=== PATIENT | female | born 1955 | race Caucasian/White ===

== ENCOUNTER 2020-11-11 02:01 | Inpatient (IN) | payer MEDICARE, MEDICAID ==
[~2020-11-11] VITALS: Ht 157.5 cm; Wt 58.9 kg
[~2020-11-11 02:01] MED LIST: ESCI10TA10 PO; LAMO25TA13 PO; LEVO112T4 PO; LEVO750T6 PO; PRED20TA PO; TIOT18CA INH
--- NOTE | 2020-11-11 02:15 | NUR ---
Pt presents to ED with shortness of breath following glf at home. Pt was found at 70% ra. Pt on 4L at this time, 90% RA.
[2020-11-11 02:45] LABS: BASOPHILS % (AUTO) 1 % (0-1); EOSINOPHILS % (AUTO) 0 % (1-7); LYMPHOCYTES % (AUTO) 26 % (22-44); MEAN CORPUSCULAR HEMOGLOBIN 29.9 pg (27.0-34.8); MEAN CORPUSCULAR HGB CONC 33.2 g/dL (32.4-35.8); MEAN PLATELET VOLUME 10.3 fL (7.4-10.4); MONOCYTES % (AUTO) 9 % (2-9); NEUTROPHILS % (AUTO) 65 % (42-75); PLATELET COUNT 225 x10^3/uL (130-400); RED BLOOD COUNT 5.09 x10^6/uL (3.82-5.3); RED CELL DISTRIBUTION WIDTH 14.8 % (9.6-15.2)
[2020-11-11 02:54] LABS: ALBUMIN 3.3 g/dL (3.4-5.0); ANION GAP 8 mmol/L (5-15); CALCIUM 8.2 mg/dL (8.5-10.1); CHLORIDE 100 mmol/L (98-107); CREATININE 0.96 mg/dL (0.55-1.02)
[2020-11-11 04:48] LABS: TROPONIN I < 0.015 ng/mL (0.000-0.045)
--- NOTE | 2020-11-11 04:55 | NUR ---
ASSUMED CARE OF PATIENT AT THIS TIME. UPON ENTERING ROOM PATIENT ON OXY MAX AT 3L SPO2 87%. INCREASED TO 6L SPO2 NOW 91%. PATIENT REQUESTING ICE CHIPS BUT OTHERWISE STATES SHE FEELS FINE. DENIES NEEDS AT THIS TIME. CALL MELENDEZ IN REACH. BED IN LOW POSITION. WILL CONTINUE TO MONITOR.
--- NOTE | 2020-11-11 04:57 | NUR ---
SEVEN REQUESTED AT THIS TIME.
[2020-11-11] MEDS ORDERED: SODIUM CHLORIDE 0.9% 1,000 ML IV ONE (05:00)
[2020-11-11] MEDS ORDERED: SODIUM CHLORIDE FLUSH 10ML SYR IVF ONE (05:00)
[2020-11-11] MEDS ORDERED: LEVETIRACETAM 1,000 MG in SODIUM CHLORIDE 0.9% 100 ML IV ONE (05:00)
[2020-11-11] MEDS ORDERED: CEFTRIAXONE 1,000 MG in DEXTROSE 5% 50 ML IVPB ONE (05:00)
[2020-11-11] MEDS ORDERED: DOXYCYCLINE 100 MG in DEXTROSE 5% 250 ML IV ONE (05:30)
[2020-11-11] MEDS ORDERED: ONDANSETRON 2MG/ML, 2ML IVPush PRN (06:00)
[2020-11-11] MEDS ORDERED: ACETAMINOPHEN 325 MG TABLET PO PRN (06:00)
[2020-11-11] MEDS ORDERED: INSTRUCTION SEE COMMENTS XX ONE (06:00)
[2020-11-11] MEDS ORDERED: LABETALOL 5MG/ML, 20ML IV PRN (06:00)
[2020-11-11 06:06] LABS: INTERNATIONAL NORMALIZED RATIO 1.04 (0.93-1.1); PROTHROMBIN TIME 11.1 Seconds (9.6-11.5)
[2020-11-11] MEDS ORDERED: OMNIPAQUE 350 MG/ML, 100ML BOTTLE ONE (06:13)
--- NOTE | 2020-11-11 06:54 | NUR ---
REPORT GIVEN TO JUNIE IVERSON.
--- NOTE | 2020-11-11 09:05 | NUR ---
LATE ENTRY 0900, PT TO CT WITH TECH TRANSPORT.
--- NOTE | 2020-11-11 09:05 | NUR ---
0700 ENTRY, SBAR RPT REC'D AND ASSUMED PT CARE. PT AWAKE, VSS, NO NEEDS AT THIS TIME.
--- NOTE | 2020-11-11 09:06 | NUR ---
LATE ENTRY 0800, PT ASSESSMENT NOTED. NO NEURO DEFICIT NOTED OTHER THAN GENERALIZED WEAKNESS. PT OOB, STAND AND TRANSFER TO [facility], RN STANDBY ASSIST. VOIDED W/O DIFFICULTY AND RTD TO BED W/O INCIDENT. SWALLOW EVAL COMPLETED AND PT PASSED. MEAL TRAY ORDERED. WARM BLANKET PROVIDED AND ICE CHIPS AT BEDSIDE.
--- NOTE | 2020-11-11 09:24 | NUR ---
PT RTD FROM CT[facility] BED IN ROOM, PT AMBULATED FROM HALLWAY TO ROOM WITH RN STANDBY ASSIST. PT WITH STEADY GAIT, HOWEVER SLOW AND SHUFFLES. MEAL TRAY SET UP AND PT EATING W/O DIFFICULTY. CALL LIGHT W/I REACH
--- NOTE | 2020-11-11 09:36 | NUR ---
PT ATE 75% OF BREAFST MEAL. TRIALED PT ON NC 6L WHILE EATING, PULSE OX MAINTAINED GREATER THAN 92%. WILL CONTINUE 6L NC
[2020-11-11 10:06] LABS: ALANINE AMINOTRANSFERASE 28 U/L (12-78); ALBUMIN 3.2 g/dL (3.4-5.0)
[2020-11-11 10:07] LABS: ALKALINE PHOSPHATASE 113 U/L (45-117); BILIRUBIN,TOTAL 0.4 mg/dL (0.2-1.0); TOTAL PROTEIN 7.1 g/dL (6.4-8.2)
[2020-11-11 10:16] LABS: BILIRUBIN, DIRECT < 0.1 mg/dL (0.1-0.2); BILIRUBIN,INDIRECT 0.3 mg/dL (0.0-2.0)
--- NOTE | 2020-11-11 12:14 | NUR ---
PT MOSTLY RESTING WITH EYES CLOSED, ARROUSES EASILY TO VERBAL STIM. NO NEURO CHANGES NOTED. IVF INFUSING W/O DIFFICULTY, PT DENIES ANY NEEDS. VSS. MEAL TRAY ORDERED. CALL LIGHT W/I REACH
[2020-11-11] MEDS ORDERED: methylPREDNISolone SOD SUCC 40 MG/ML ONE (12:35)
--- NOTE | 2020-11-11 12:57 | NUR ---
VERBAL PERMISSION OBTAINED FROM PT. UPDATED PTS DAUGHTER, GLORIA. POC DISCUSSED AND QUESTIONS ANSWERED.
[2020-11-11] MEDS: CEFTRIAXONE 2 GM in DEXTROSE 5% 50 ML IVPB SCH (13:01)
[2020-11-11] MEDS: methylPREDNISolone SOD SUCC 40 MG/ML IV SCH ×2 (13:01→22:11)
--- NOTE | 2020-11-11 14:09 | NUR ---
ASSUMED CARE FROM JUNIE IVERSON. PATIENT SITTING IN ROOM SLEEPING BETWEEN CARE. NO NEEDS AT THIS TIME, CALL LIGHT IN REACH.
[2020-11-11] MEDS: TIOTROPIUM BROMIDE 18 MCG/INH INH SCH (14:36)
[2020-11-11] MEDS ORDERED: LEVETIRACETAM 500 MG in SODIUM CHLORIDE 0.9% 100 ML IV SCH (17:00)
--- NOTE | 2020-11-11 17:37 | NUR ---
REPORT TO JUNIE JACOBSEN. PATIENT AWAITING TRANSPORT.
[2020-11-11 18:25] VITALS: BP 96/42
[2020-11-12 03:31] VITALS: BP 108/63
[2020-11-12] MEDS: methylPREDNISolone SOD SUCC 40 MG/ML IV SCH (05:28)
[2020-11-12] MEDS: LEVOTHYROXINE 112 MCG TABLET PO SCH (05:29)
[2020-11-12 06:40] LABS: BASOPHILS % (AUTO) 0 % (0-1); EOSINOPHILS % (AUTO) 0 % (1-7); LYMPHOCYTES % (AUTO) 21 % (22-44); MEAN CORPUSCULAR HEMOGLOBIN 30.2 pg (27.0-34.8); MEAN CORPUSCULAR HGB CONC 33.2 g/dL (32.4-35.8); MEAN PLATELET VOLUME 11.1 fL (7.4-10.4); MONOCYTES % (AUTO) 4 % (2-9); NEUTROPHILS % (AUTO) 75 % (42-75); PLATELET COUNT 218 x10^3/uL (130-400); RED BLOOD COUNT 4.95 x10^6/uL (3.82-5.3); RED CELL DISTRIBUTION WIDTH 15.2 % (9.6-15.2)
[2020-11-12 06:53] LABS: CALCIUM 8.7 mg/dL (8.5-10.1); CHLORIDE 106 mmol/L (98-107)
[2020-11-12 06:59] LABS: ALANINE AMINOTRANSFERASE 24 U/L (12-78); ALBUMIN 2.7 g/dL (3.4-5.0); ALKALINE PHOSPHATASE 102 U/L (45-117); ANION GAP 8 mmol/L (5-15); BILIRUBIN,TOTAL 0.1 mg/dL (0.2-1.0); CHOL/HDL RATIO 2.1; CHOLESTEROL, TOTAL 130 mg/dL (140-239); CREATININE 0.62 mg/dL (0.55-1.02); HDL CHOL % 47 % (28-40); HDL CHOLESTEROL (DIRECT) 61 mg/dL (40-60); LDL CHOLESTEROL,CALCULATED 59 mg/dL (54-169); TOTAL PROTEIN 6.5 g/dL (6.4-8.2); TRIGLYCERIDES 48 mg/dL (50-200); VLDL CHOLESTEROL 10 mg/dL (0-25)
[2020-11-12 08:34] VITALS: BP 133/56
[2020-11-12] MEDS: ESCITALOPRAM 10MG TABLET PO SCH (08:39)
[2020-11-12] MEDS: LAMOTRIGINE 25 MG TABLET PO SCH (08:39)
[2020-11-12] MEDS: ENOXAPARIN 40 MG/0.4 ML SQ SCH (10:40)
[2020-11-12] MEDS: TIOTROPIUM BROMIDE 18 MCG/INH INH SCH (12:05)
[2020-11-12] MEDS: CEFTRIAXONE 2 GM in DEXTROSE 5% 50 ML IVPB SCH (12:05)
[2020-11-12 13:49] VITALS: BP 98/55
[2020-11-12 16:14] VITALS: BP 99/61
[2020-11-12 18:48] VITALS: BP 107/59
[2020-11-12] MEDS: AZITHROMYCIN 500 MG TABLET PO SCH (19:39)
[2020-11-12] MEDS: GUAIFENESIN/DM 200-20MG, 10ML UDC PO PRN (20:06)
[2020-11-13 00:25] VITALS: BP 108/65
[2020-11-13] MEDS: GUAIFENESIN/DM 200-20MG, 10ML UDC PO PRN ×2 (04:53→16:15)
[2020-11-13] MEDS: LEVOTHYROXINE 112 MCG TABLET PO SCH (04:54)
[2020-11-13 09:11] VITALS: BP 112/58
[2020-11-13] MEDS: ENOXAPARIN 40 MG/0.4 ML SQ SCH (09:12)
[2020-11-13] MEDS: AZITHROMYCIN 500 MG TABLET PO SCH (09:13)
[2020-11-13] MEDS: ESCITALOPRAM 10MG TABLET PO SCH (09:13)
[2020-11-13] MEDS: LAMOTRIGINE 25 MG TABLET PO SCH (09:13)
[2020-11-13] MEDS: DEXAMETHASONE 4 MG TABLET PO SCH (09:13)
[2020-11-13] MEDS: TIOTROPIUM BROMIDE 18 MCG/INH INH SCH (09:14)
[2020-11-13] MEDS: CEFTRIAXONE 2 GM in DEXTROSE 5% 50 ML IVPB SCH (11:52)
[2020-11-13 14:45] VITALS: BP 107/64
[2020-11-13] MEDS: OXYcodone IR 5MG TABLET PO PRN ×2 (16:15→21:22)
[2020-11-13] MEDS ORDERED: REMDESIVIR 200 MG in SODIUM CHLORIDE 0.9% 100 ML IVPB ONE (18:00)
[2020-11-13 18:32] VITALS: BP 102/59
[2020-11-14 03:53] VITALS: BP 109/69
[2020-11-14] MEDS: LEVOTHYROXINE 112 MCG TABLET PO SCH ×2 (04:20→05:18)
[2020-11-14] MEDS: OXYcodone IR 5MG TABLET PO PRN ×4 (04:21→18:31)
[2020-11-14 05:00] LABS: ALANINE AMINOTRANSFERASE 24 U/L (12-78); ALBUMIN 2.7 g/dL (3.4-5.0); ANION GAP 5 mmol/L (5-15); CALCIUM 8.8 mg/dL (8.5-10.1); CHLORIDE 104 mmol/L (98-107); CREATININE 0.66 mg/dL (0.55-1.02)
[2020-11-14 05:03] LABS: ALKALINE PHOSPHATASE 96 U/L (45-117); BILIRUBIN,TOTAL 0.1 mg/dL (0.2-1.0); TOTAL PROTEIN 6.5 g/dL (6.4-8.2)
[2020-11-14 06:50] VITALS: BP 99/62
[2020-11-14] MEDS: ESCITALOPRAM 10MG TABLET PO SCH (08:50)
[2020-11-14] MEDS: DEXAMETHASONE 4 MG TABLET PO SCH (08:50)
[2020-11-14] MEDS: LAMOTRIGINE 25 MG TABLET PO SCH (08:50)
[2020-11-14] MEDS: AZITHROMYCIN 500 MG TABLET PO SCH (08:50)
[2020-11-14] MEDS: ENOXAPARIN 40 MG/0.4 ML SQ SCH (08:54)
[2020-11-14] MEDS: GUAIFENESIN/DM 200-20MG, 10ML UDC PO PRN ×2 (09:15→18:34)
[2020-11-14] MEDS: TIOTROPIUM BROMIDE 18 MCG/INH INH SCH (09:59)
[2020-11-14 11:45] VITALS: BP 106/66
[2020-11-14] MEDS: CEFTRIAXONE 2 GM in DEXTROSE 5% 50 ML IVPB SCH (12:52)
[2020-11-14 17:16] VITALS: BP 112/61
[2020-11-14] MEDS: REMDESIVIR 100 MG in SODIUM CHLORIDE 0.9% 100 ML IVPB SCH (18:21)
[2020-11-14] MEDS: POLYETHYLENE GLYCOL 17 GM PACKET PO PRN (18:30)
[2020-11-14 21:37] VITALS: BP 102/52
[2020-11-15 00:05] VITALS: BP 97/54
[2020-11-15] MEDS: OXYcodone IR 5MG TABLET PO PRN ×3 (03:25→19:51)
[2020-11-15] MEDS: LEVOTHYROXINE 112 MCG TABLET PO SCH (05:23)
[2020-11-15 06:36] LABS: ALBUMIN 2.3 g/dL (3.4-5.0); ANION GAP 4 mmol/L (5-15); CALCIUM 8.5 mg/dL (8.5-10.1); CHLORIDE 102 mmol/L (98-107)
[2020-11-15 06:41] LABS: ALANINE AMINOTRANSFERASE 63 U/L (12-78); ALKALINE PHOSPHATASE 103 U/L (45-117); BILIRUBIN,TOTAL 0.2 mg/dL (0.2-1.0); CREATININE 0.52 mg/dL (0.55-1.02); TOTAL PROTEIN 5.9 g/dL (6.4-8.2)
[2020-11-15 08:18] VITALS: BP 101/59
[2020-11-15] MEDS: ENOXAPARIN 40 MG/0.4 ML SQ SCH (08:56)
[2020-11-15] MEDS: ESCITALOPRAM 10MG TABLET PO SCH (08:56)
[2020-11-15] MEDS: LAMOTRIGINE 25 MG TABLET PO SCH (08:56)
[2020-11-15] MEDS: AZITHROMYCIN 500 MG TABLET PO SCH (08:56)
[2020-11-15] MEDS: TIOTROPIUM BROMIDE 18 MCG/INH INH SCH (08:57)
[2020-11-15] MEDS: DEXAMETHASONE 4 MG TABLET PO SCH (08:57)
[2020-11-15] MEDS: GUAIFENESIN/DM 200-20MG, 10ML UDC PO PRN (09:05)
[2020-11-15] MEDS: CEFTRIAXONE 2 GM in DEXTROSE 5% 50 ML IVPB SCH (12:14)
[2020-11-15 12:59] VITALS: BP 106/59
[2020-11-15] MEDS: REMDESIVIR 100 MG in SODIUM CHLORIDE 0.9% 100 ML IVPB SCH (18:14)
[2020-11-15 19:44] VITALS: BP 109/57
[2020-11-16 01:36] VITALS: BP 115/63
[2020-11-16] MEDS: LEVOTHYROXINE 112 MCG TABLET PO SCH (05:57)
[2020-11-16 06:24] VITALS: BP 121/62
[2020-11-16 06:42] LABS: MEAN CORPUSCULAR HEMOGLOBIN 30.3 pg (27.0-34.8); MEAN CORPUSCULAR HGB CONC 33.4 g/dL (32.4-35.8); MEAN PLATELET VOLUME 11.6 fL (7.4-10.4); PLATELET COUNT 208 x10^3/uL (130-400); RED CELL DISTRIBUTION WIDTH 14.9 % (9.6-15.2)
[2020-11-16 07:16] LABS: <PLATELET ESTIMATE> ADEQUATE; ACANTHOCYTES 1+; ECHINOCYTES 1+; LARGE PLATELETS 1+; LYMPHS% (MANUAL) 21 % (22-44); MONOS#(MANUAL) 0.86 x10^3/uL (0.3-2.7); MONOS% (MANUAL) 15 % (2-9); SEG#(MANUAL) 3.65 x10^3/uL (1.8-6.8); SEGS% (MANUAL) 64 % (42-75)
[2020-11-16 08:12] LABS: ALANINE AMINOTRANSFERASE 70 U/L (12-78); ALBUMIN 2.2 g/dL (3.4-5.0); ANION GAP 3 mmol/L (5-15); CALCIUM 8.3 mg/dL (8.5-10.1); CHLORIDE 102 mmol/L (98-107); CREATININE 0.58 mg/dL (0.55-1.02)
[2020-11-16 08:14] LABS: ALKALINE PHOSPHATASE 103 U/L (45-117); BILIRUBIN,TOTAL 0.3 mg/dL (0.2-1.0); TOTAL PROTEIN 5.8 g/dL (6.4-8.2)
[2020-11-16] MEDS: ENOXAPARIN 40 MG/0.4 ML SQ SCH (09:09)
[2020-11-16] MEDS: AZITHROMYCIN 500 MG TABLET PO SCH (09:09)
[2020-11-16] MEDS: DEXAMETHASONE 4 MG TABLET PO SCH (09:09)
[2020-11-16] MEDS: LAMOTRIGINE 25 MG TABLET PO SCH (09:09)
[2020-11-16] MEDS: ESCITALOPRAM 10MG TABLET PO SCH (09:09)
[2020-11-16] MEDS: TIOTROPIUM BROMIDE 18 MCG/INH INH SCH (09:10)
[2020-11-16] MEDS: OXYcodone IR 5MG TABLET PO PRN ×2 (09:25→20:03)
[2020-11-16] MEDS: GUAIFENESIN/DM 200-20MG, 10ML UDC PO PRN (09:26)
[2020-11-16 12:57] VITALS: BP 107/60
[2020-11-16] MEDS: REMDESIVIR 100 MG in SODIUM CHLORIDE 0.9% 100 ML IVPB SCH (17:22)
[2020-11-16] MEDS ORDERED: FUROSEMIDE 40 MG/4 ML IV ONE (18:00)
[2020-11-16 20:05] VITALS: BP 130/61
[2020-11-17 01:01] VITALS: BP 96/60
[2020-11-17 04:21] LABS: ALBUMIN 2.3 g/dL (3.4-5.0); ANION GAP 2 mmol/L (5-15); CALCIUM 8.4 mg/dL (8.5-10.1); CHLORIDE 99 mmol/L (98-107)
[2020-11-17 04:24] LABS: ALANINE AMINOTRANSFERASE 95 U/L (12-78); ALKALINE PHOSPHATASE 111 U/L (45-117); BILIRUBIN,TOTAL 0.5 mg/dL (0.2-1.0); CREATININE 0.75 mg/dL (0.55-1.02); TOTAL PROTEIN 6.2 g/dL (6.4-8.2)
[2020-11-17] MEDS: LEVOTHYROXINE 112 MCG TABLET PO SCH (06:09)
[2020-11-17] MEDS ORDERED: FUROSEMIDE 20 MG/2 ML IV SCH (09:00)
[2020-11-17 09:41] VITALS: BP 128/60
[2020-11-17] MEDS: LAMOTRIGINE 25 MG TABLET PO SCH (09:44)
[2020-11-17] MEDS: ENOXAPARIN 40 MG/0.4 ML SQ SCH (09:44)
[2020-11-17] MEDS: FUROSEMIDE 20 MG TABLET PO SCH (09:45)
[2020-11-17] MEDS: DEXAMETHASONE 4 MG TABLET PO SCH (09:45)
[2020-11-17] MEDS: TIOTROPIUM BROMIDE 18 MCG/INH INH SCH (09:45)
[2020-11-17] MEDS: ESCITALOPRAM 10MG TABLET PO SCH (09:45)
[2020-11-17] MEDS: POLYETHYLENE GLYCOL 17 GM PACKET PO PRN (12:18)
[2020-11-17 15:13] VITALS: BP 105/58
[2020-11-17] MEDS: OXYcodone IR 5MG TABLET PO PRN (15:33)
[2020-11-17] MEDS: REMDESIVIR 100 MG in SODIUM CHLORIDE 0.9% 100 ML IVPB SCH (16:10)
[2020-11-17 20:57] VITALS: BP 111/63
[2020-11-18 00:27] VITALS: BP 102/61
[2020-11-18 04:19] VITALS: BP 131/69
[2020-11-18] MEDS: LEVOTHYROXINE 112 MCG TABLET PO SCH (05:05)
[2020-11-18 05:49] LABS: BASOPHILS % (AUTO) 0 % (0-1); EOSINOPHILS % (AUTO) 0 % (1-7); LYMPHOCYTES % (AUTO) 22 % (22-44); MEAN CORPUSCULAR HGB CONC 33.4 g/dL (32.4-35.8); MEAN PLATELET VOLUME 11.3 fL (7.4-10.4); MONOCYTES % (AUTO) 16 % (2-9); NEUTROPHILS % (AUTO) 62 % (42-75); PLATELET COUNT 291 x10^3/uL (130-400); RED CELL DISTRIBUTION WIDTH 14.7 % (9.6-15.2)
[2020-11-18 05:53] LABS: CALCIUM 8.3 mg/dL (8.5-10.1); CREATININE 0.68 mg/dL (0.55-1.02)
[2020-11-18 05:56] LABS: ANION GAP 4 mmol/L (5-15); CHLORIDE 100 mmol/L (98-107)
[2020-11-18 07:55] VITALS: BP 118/85
[2020-11-18] MEDS: DEXAMETHASONE 4 MG TABLET PO SCH (08:37)
[2020-11-18] MEDS: ESCITALOPRAM 10MG TABLET PO SCH (08:37)
[2020-11-18] MEDS: ENOXAPARIN 40 MG/0.4 ML SQ SCH (08:37)
[2020-11-18] MEDS: LAMOTRIGINE 25 MG TABLET PO SCH (08:37)
[2020-11-18] MEDS: TIOTROPIUM BROMIDE 18 MCG/INH INH SCH (08:38)
[2020-11-18] MEDS: FUROSEMIDE 20 MG TABLET PO SCH (08:48)
[2020-11-18 14:00] VITALS: BP 133/68
[2020-11-18] MEDS: POLYETHYLENE GLYCOL 17 GM PACKET PO SCH ×2 (19:00→21:30)
[2020-11-18 19:24] VITALS: BP 121/70
[2020-11-18] MEDS: GUAIFENESIN ER 600 MG TABLET PO SCH (21:30)
[2020-11-18 23:36] VITALS: BP 108/52
[2020-11-19 03:49] VITALS: BP 116/66
[2020-11-19] MEDS: LEVOTHYROXINE 112 MCG TABLET PO SCH (06:10)
[2020-11-19 08:00] VITALS: BP 118/57
[2020-11-19] MEDS: DEXAMETHASONE 4 MG TABLET PO SCH (08:37)
[2020-11-19] MEDS: TIOTROPIUM BROMIDE 18 MCG/INH INH SCH (08:38)
[2020-11-19] MEDS: ENOXAPARIN 40 MG/0.4 ML SQ SCH (08:38)
[2020-11-19] MEDS: LAMOTRIGINE 25 MG TABLET PO SCH (08:38)
[2020-11-19] MEDS: OXYcodone IR 5MG TABLET PO PRN (08:38)
[2020-11-19] MEDS: ESCITALOPRAM 10MG TABLET PO SCH (08:38)
[2020-11-19] MEDS: GUAIFENESIN ER 600 MG TABLET PO SCH ×2 (08:38→21:43)
[2020-11-19] MEDS ORDERED: FUROSEMIDE 40 MG/4 ML IV SCH (09:00)
[2020-11-19] MEDS ORDERED: METHYLNALTREXONE 12 MG/0.6 ML SYR SQ ONE ×2 (09:00→11:30)
[2020-11-19] MEDS: POLYETHYLENE GLYCOL 17 GM PACKET PO SCH ×2 (11:48→21:43)
[2020-11-19 13:42] VITALS: BP 114/61
[2020-11-19 19:44] VITALS: BP 104/67
[2020-11-20 01:16] VITALS: BP 124/70
[2020-11-20] MEDS: LEVOTHYROXINE 112 MCG TABLET PO SCH (06:07)
[2020-11-20 08:48] VITALS: BP 96/60
[2020-11-20] MEDS: ENOXAPARIN 40 MG/0.4 ML SQ SCH (08:55)
[2020-11-20] MEDS: LAMOTRIGINE 25 MG TABLET PO SCH (08:55)
[2020-11-20] MEDS: GUAIFENESIN ER 600 MG TABLET PO SCH ×2 (08:56→20:17)
[2020-11-20] MEDS: DEXAMETHASONE 4 MG TABLET PO SCH (08:56)
[2020-11-20] MEDS: POLYETHYLENE GLYCOL 17 GM PACKET PO SCH ×2 (08:56→20:17)
[2020-11-20] MEDS: ESCITALOPRAM 10MG TABLET PO SCH (08:56)
[2020-11-20] MEDS: TIOTROPIUM BROMIDE 18 MCG/INH INH SCH (08:56)
[2020-11-20] MEDS: OXYcodone IR 5MG TABLET PO PRN ×2 (09:04→20:19)
[2020-11-20 13:28] VITALS: BP 108/63
[2020-11-20 19:25] VITALS: BP 123/68
[2020-11-21 02:54] VITALS: BP 115/61
[2020-11-21] MEDS: OXYcodone IR 5MG TABLET PO PRN ×2 (05:40→20:46)
[2020-11-21] MEDS: LEVOTHYROXINE 112 MCG TABLET PO SCH (05:40)
[2020-11-21 08:47] VITALS: BP 115/57
[2020-11-21] MEDS: LAMOTRIGINE 25 MG TABLET PO SCH (08:52)
[2020-11-21] MEDS: ESCITALOPRAM 10MG TABLET PO SCH (08:52)
[2020-11-21] MEDS: GUAIFENESIN ER 600 MG TABLET PO SCH ×2 (08:52→20:45)
[2020-11-21] MEDS: DEXAMETHASONE 4 MG TABLET PO SCH (08:52)
[2020-11-21] MEDS: ENOXAPARIN 40 MG/0.4 ML SQ SCH (08:53)
[2020-11-21] MEDS: TIOTROPIUM BROMIDE 18 MCG/INH INH SCH (08:53)
[2020-11-21] MEDS: POLYETHYLENE GLYCOL 17 GM PACKET PO SCH ×2 (08:53→20:47)
[2020-11-21 13:09] VITALS: BP 123/65
[2020-11-21 20:15] VITALS: BP 108/60
[2020-11-22 00:26] VITALS: BP 107/62
[2020-11-22] MEDS: LEVOTHYROXINE 112 MCG TABLET PO SCH (05:03)
[2020-11-22] MEDS: OXYcodone IR 5MG TABLET PO PRN (05:03)
[2020-11-22 06:44] VITALS: BP 99/59
[2020-11-22] MEDS: ENOXAPARIN 40 MG/0.4 ML SQ SCH (08:49)
[2020-11-22] MEDS: GUAIFENESIN ER 600 MG TABLET PO SCH ×2 (08:50→22:00)
[2020-11-22] MEDS: TIOTROPIUM BROMIDE 18 MCG/INH INH SCH (08:52)
[2020-11-22] MEDS: DEXAMETHASONE 4 MG TABLET PO SCH (08:52)
[2020-11-22] MEDS: ESCITALOPRAM 10MG TABLET PO SCH (08:52)
[2020-11-22] MEDS: LAMOTRIGINE 25 MG TABLET PO SCH (08:52)
[2020-11-22] MEDS: POLYETHYLENE GLYCOL 17 GM PACKET PO SCH ×2 (08:53→22:01)
[2020-11-22 13:05] VITALS: BP 100/49
[2020-11-22 20:36] VITALS: BP 106/61
[2020-11-23 01:43] VITALS: BP 119/60
[2020-11-23] MEDS: LEVOTHYROXINE 112 MCG TABLET PO SCH (05:16)
[2020-11-23 08:45] VITALS: BP 107/58
[2020-11-23] MEDS: POLYETHYLENE GLYCOL 17 GM PACKET PO SCH (09:00)
[2020-11-23] MEDS: TIOTROPIUM BROMIDE 18 MCG/INH INH SCH (09:01)
[2020-11-23] MEDS: GUAIFENESIN ER 600 MG TABLET PO SCH ×2 (09:01→21:29)
[2020-11-23] MEDS: LAMOTRIGINE 25 MG TABLET PO SCH (09:01)
[2020-11-23] MEDS: ESCITALOPRAM 10MG TABLET PO SCH (09:01)
[2020-11-23] MEDS: ENOXAPARIN 40 MG/0.4 ML SQ SCH (09:01)
[2020-11-23 12:26] VITALS: BP 112/62
[2020-11-23 19:20] VITALS: BP 120/62
[2020-11-23] MEDS: OXYcodone IR 5MG TABLET PO PRN (21:37)
[2020-11-24 03:11] VITALS: BP 109/60
[2020-11-24 04:34] LABS: CREATININE 0.69 mg/dL (0.55-1.02)
[2020-11-24] MEDS: LEVOTHYROXINE 112 MCG TABLET PO SCH (05:11)
[2020-11-24 08:13] VITALS: BP 102/62
[2020-11-24] MEDS: LAMOTRIGINE 25 MG TABLET PO SCH (08:44)
[2020-11-24] MEDS: GUAIFENESIN ER 600 MG TABLET PO SCH ×2 (08:44→20:12)
[2020-11-24] MEDS: POLYETHYLENE GLYCOL 17 GM PACKET PO SCH (08:44)
[2020-11-24] MEDS: ENOXAPARIN 40 MG/0.4 ML SQ SCH (08:44)
[2020-11-24] MEDS: ESCITALOPRAM 10MG TABLET PO SCH (08:44)
[2020-11-24] MEDS: TIOTROPIUM BROMIDE 18 MCG/INH INH SCH (10:13)
[2020-11-24 12:23] VITALS: BP 115/55
[2020-11-24] MEDS ORDERED: POLY17PO5 PO (12:43)
[2020-11-24] MEDS ORDERED: ACET325T26 PO (12:43)
[2020-11-24] MEDS ORDERED: ENOX40SY4 SQ (12:43)
[2020-11-24 19:14] VITALS: BP 97/56
[2020-11-25 02:00] VITALS: BP 101/57
[2020-11-25] MEDS: LEVOTHYROXINE 112 MCG TABLET PO SCH (05:35)
[2020-11-25 05:51] LABS: CHLORIDE 107 mmol/L (98-107)
[2020-11-25 05:52] LABS: BASOPHILS % (AUTO) 0 % (0-1); EOSINOPHILS % (AUTO) 2 % (1-7); LYMPHOCYTES % (AUTO) 17 % (22-44); MEAN CORPUSCULAR HEMOGLOBIN 30.1 pg (27.0-34.8); MEAN CORPUSCULAR HGB CONC 33.2 g/dL (32.4-35.8); MONOCYTES % (AUTO) 12 % (2-9); NEUTROPHILS % (AUTO) 69 % (42-75); PLATELET COUNT 282 x10^3/uL (130-400); RED BLOOD COUNT 4.76 x10^6/uL (3.82-5.3); RED CELL DISTRIBUTION WIDTH 15.2 % (9.6-15.2)
[2020-11-25 05:56] LABS: ANION GAP 4 mmol/L (5-15); CALCIUM 8.3 mg/dL (8.5-10.1)
[2020-11-25 06:27] VITALS: BP 108/64
[2020-11-25] MEDS: ESCITALOPRAM 10MG TABLET PO SCH (08:12)
[2020-11-25] MEDS: GUAIFENESIN ER 600 MG TABLET PO SCH (08:12)
[2020-11-25] MEDS: LAMOTRIGINE 25 MG TABLET PO SCH (08:12)
[2020-11-25] MEDS: TIOTROPIUM BROMIDE 18 MCG/INH INH SCH (08:13)
[2020-11-25] MEDS: ENOXAPARIN 40 MG/0.4 ML SQ SCH (08:14)
[2020-11-25] MEDS: POLYETHYLENE GLYCOL 17 GM PACKET PO SCH (08:14)
== END 2020-11-25 14:13 | DRG 177 ==
LOC: ED 05:22 → EDIP 05:49 → 4WST 18:05
PROVIDERS: ADMIT Internal Medicine; ATTEND Hospitalist
PROC: XW033E5 Introduction of Remdesivir Anti-infective into Peripheral Vein, Percutaneous Approach, New Technology Group 5 (ICD-10-PCS; principal; 2020-11-13)
PROC: 5A0935A Assistance with Respiratory Ventilation, Less than 24 Consecutive Hours, High Flow/Velocity Cannula (ICD-10-PCS; 2020-11-13)
PROC: 5A0935A Assistance with Respiratory Ventilation, Less than 24 Consecutive Hours, High Flow/Velocity Cannula (ICD-10-PCS; 2020-11-14)
PROC: 5A0935A Assistance with Respiratory Ventilation, Less than 24 Consecutive Hours, High Flow/Velocity Cannula (ICD-10-PCS; 2020-11-15)
PROC: 5A0935A Assistance with Respiratory Ventilation, Less than 24 Consecutive Hours, High Flow/Velocity Cannula (ICD-10-PCS; 2020-11-16)
PROC: 5A0935A Assistance with Respiratory Ventilation, Less than 24 Consecutive Hours, High Flow/Velocity Cannula (ICD-10-PCS; 2020-11-18)
PROC: 5A0945A Assistance with Respiratory Ventilation, 24-96 Consecutive Hours, High Flow/Velocity Cannula (ICD-10-PCS; 2020-11-19)
PROC: 5A0935A Assistance with Respiratory Ventilation, Less than 24 Consecutive Hours, High Flow/Velocity Cannula (ICD-10-PCS; 2020-11-20)
PROC: 5A0935A Assistance with Respiratory Ventilation, Less than 24 Consecutive Hours, High Flow/Velocity Cannula (ICD-10-PCS; 2020-11-24)
DX: U07.1 COVID-19 (principal); S06.5X0A Traumatic subdural hemorrhage without loss of consciousness, initial encounter; J96.01 Acute respiratory failure with hypoxia; J12.82 Pneumonia due to coronavirus disease 2019; D84.9 Immunodeficiency, unspecified; J44.0 Chronic obstructive pulmonary disease with (acute) lower respiratory infection; J44.1 Chronic obstructive pulmonary disease with (acute) exacerbation; M85.80 Other specified disorders of bone density and structure, unspecified site; W18.39XA Other fall on same level, initial encounter; D75.1 Secondary polycythemia; E03.9 Hypothyroidism, unspecified; F17.210 Nicotine dependence, cigarettes, uncomplicated; F19.10 Other psychoactive substance abuse, uncomplicated; J98.4 Other disorders of lung; M50.30 Other cervical disc degeneration, unspecified cervical region; T50.995A Adverse effect of other drugs, medicaments and biological substances, initial encounter; K59.00 Constipation, unspecified; Z85.118 Personal history of other malignant neoplasm of bronchus and lung; Y93.89 Activity, other specified; Y92.009 Unspecified place in unspecified non-institutional (private) residence as the place of occurrence of the external cause; Z88.1 Allergy status to other antibiotic agents; Y99.8 Other external cause status; Z90.81 Acquired absence of spleen; Z99.81 Dependence on supplemental oxygen; Z90.49 Acquired absence of other specified parts of digestive tract; Z88.8 Allergy status to other drugs, medicaments and biological substances
CPT/HCPCS: 36415; 70450; 71045; 71275; 72125; 80048; 80053; 80061; 80076; 82040; 82565; 83605; 83615; 83880; 84145; 84484; 85025; 85379; 85610; 85730; 86140; 87040; 93005; 96374; 96375; G0378; J0696; J1650; J1940; J1953; J7060; Q9967; U0005; 92522-GN; J2920; J7030; U0003